=== PATIENT | female | born 1980 | race Caucasian/White ===

== ENCOUNTER 2017-04-13 09:12 | Emergency (ER) | payer MEDICAID, OTHER ==
[~2017-04-13] VITALS: Ht 170.2 cm; Wt 72.6 kg
[2017-04-13 09:15] VITALS: BP 147/77
== END 2017-04-13 10:34 | disposition home or self-care (01) ==
LOC: ER 09:16
DX: M54.6 Pain in thoracic spine (principal); M54.2 Cervicalgia; Z90.89 Acquired absence of other organs; V89.2XXA Person injured in unspecified motor-vehicle accident, traffic, initial encounter; Y93.89 Activity, other specified; Y92.410 Unspecified street and highway as the place of occurrence of the external cause; Y99.8 Other external cause status
CPT/HCPCS: 72074-TC; A4606; Z7610